=== PATIENT | female | born 1950 | race Hispanic/Latino ===

== ENCOUNTER 2018-11-14 09:23 | Outpatient (CLI) | payer MEDICARE | END 2018-11-14 09:24 | disposition home or self-care (01) | LOC: RAD 09:23 ==

== ENCOUNTER 2018-12-04 16:49 | Outpatient (CLI) | payer MEDICARE | END 2018-12-04 16:50 | disposition home or self-care (01) | LOC: RAD 16:49 ==

== ENCOUNTER 2019-01-02 08:01 | Outpatient (CLI) | payer MEDICARE | END 2019-01-02 08:02 | disposition home or self-care (01) | LOC: RAD 08:01 | DX: R10.2 Pelvic and perineal pain (principal) ==